=== PATIENT | female | born 1950 | race Caucasian/White ===

== ENCOUNTER 2023-03-27 15:48 | Outpatient (CLI) | payer MEDICARE, OTHER ==
--- NOTE | 2023-03-28 09:07 | XRAY Report ---
PROCEDURE: Lumbar Spine 2 View INDICATIONS: LUMBAR DISC DISORDERS W/RADICULOPATHY TECHNIQUE: 2 views of the lumbar spine were acquired. COMPARISON: None. FINDINGS: Bones: 5 [id number] vertebrae are present. There is mild levoscoliosis. Grade 1 anterolisthesi s of L3 on L4 and L4-L5. No vertebral body compression fractures. No suspicious bony lesions. Disc ectomy and posterior fusion at L4-L5. There is surgical device in the posterior element of L3-L4. Mod erate degenerative disc disease at L5-S1, and mild degenerative disc disease at L1-L2, L2-L3 and L3-L 4. Soft tissues: Overlying bowel gas pattern is normal. No suspicious soft tissue calcifications. IMPRESSION: Degenerative and postsurgical changes in lumbar spine. Reviewed by: Annelise Gomez MD on 03/28/2023 9:05 AM PDT Approved by: Annelise Gomez MD on 03/28/2023 9:05 AM PDT Station ID: [id number]
== END 2023-03-27 15:49 | disposition home or self-care (01) ==
LOC: DI 15:48
PROVIDERS: ATTEND Orthopaedic Surgery
DX: M51.36 Other intervertebral disc degeneration, lumbar region (principal); M51.37 Other intervertebral disc degeneration, lumbosacral region; M43.16 Spondylolisthesis, lumbar region; Z98.1 Arthrodesis status

== ENCOUNTER 2024-06-08 10:47 | Emergency (ER) | payer MEDICARE, OTHER ==
[2024-06-08 11:24] LABS: BASOPHILS % (AUTO) 0.4 %; EOSINOPHILS # (AUTO) 0.1 10^3/uL (0.0-0.7); EOSINOPHILS % (AUTO) 1.1 %; HCT - HEMATOCRIT 44.8 % (37.0-47.0); HGB - HEMOGLOBIN 14.7 g/dL (12.0-16.0); LYMPHOCYTES # (AUTO) 2.3 10^3/uL (1.5-3.5); LYMPHOCYTES % (AUTO) 24.7 %; MEAN CORPUSCULAR HGB CONC 32.8 g/dL (32.0-36.0); MEAN CORPUSCULAR VOLUME 91.4 fL (81.0-99.0); MONOCYTES # (AUTO) 0.6 10^3/uL (0.0-1.0); MONOCYTES % (AUTO) 6.5 %; NEUTROPHILS # (AUTO) 6.2 10^3/uL (1.5-6.6); NEUTROPHILS % (AUTO) 66.9 %; PLT - PLATELET COUNT 238 10^3/uL (130-450); RED CELL DISTRIBUTION WIDTH 12.2 % (12.0-15.0); WHITE BLOOD COUNT 9.2 x10^3/uL (4.8-10.8)
--- NOTE | 2024-06-08 11:27 | ED Physician Documentation ---
History of Present Illness - Stated complaint Stated Complaint: DIZZY, NATARAJAN - Chief complaint Chief Complaint: Neuro - History obtained from History obtained from: Patient - Additonal information Additional information: Patient is a 73-year-old female presenting to the emergency department with diffuse symptoms including headache fatigue difficulty finding words that been going on for months now. The patient denies any nausea vomiting photophobia she notes headache is behind the left side of her head. She denies any vision changes. Patient has past medical history remarkable for diabetes, hypertension she has been compliant with her home medications and is on insulin blood sugars have remained under control recently. She denies any sick contacts no viral URI symptoms. She denies any chest pain or shortness of breath associated with her symptoms.Patient has taken Tylenol at home for symptoms with no significant relief. PD PAST MEDICAL HISTORY - Past Medical History Past Medical History: Yes Cardiovascular: Hypertension, High cholesterol Respiratory: Other Neuro: Other Endocrine/Autoimmune: Type 2 diabetes GI: GERD OPTICAL ASSISTANT: Fibroids : Incontinence HEENT: None Psych: Depression Musculoskeletal: Chronic back pain Derm: None - Past Surgical History Past Surgical History: Yes Ortho: Spine surgery, Other - Present Medications Home Medications: Ambulatory Orders Medication Instructions Recorded Confirmed Atorvastatin Calcium [Lipitor] 80 mg PO DAILY 06/08/24 06/08/24 DULoxetine [Cymbalta] 40 mg PO DAILY 06/08/24 06/08/24 Insulin Aspart [NovoLOG] 5 - 8 unit SUBQ TIDWM 06/08/24 06/08/24 Insulin Glargine [Lantus Solostar] 42 unit SUBQ BID 06/08/24 06/08/24 Losartan Potassium 100 mg PO DAILY 06/08/24 06/08/24 Mecobalamin [B12 Active] 5,000 mcg PO DAILY 06/08/24 06/08/24 Omeprazole 20 mg PO BID 06/08/24 06/08/24 Semaglutide [Ozempic] 0.25 mg SQ Q7D 06/08/24 06/08/24 [place] 800 mg ORAL DAILY PM 06/08/24 06/08/24 cephALEXin [Keflex] 500 mg PO BID #10 cap 06/08/24 oxyBUTYnin chloride [Oxybutynin 15 mg ORAL DAILY 06/08/24 06/08/24 Chloride ER] rOPINIRole [Requip] 4 mg PO QPM 06/08/24 06/08/24 - Allergies Allergies/Adverse Reactions: Allergies Allergy/AdvReac Type Severity Reaction Status Date / Time Sulfa (Sulfonamide Allergy Emesis Verified 06/08/24 10:55 Antibiotics) sulfamethoxazole Allergy Emesis Verified 06/08/24 10:55 [From Bactrim] trimethoprim [From Bactrim] Allergy Emesis Verified 06/08/24 10:55 - Social History Does the pt smoke?: No Smoking Status: Former smoker Does the pt drink ETOH?: No Does the pt have substance abuse?: No - Immunizations Immunizations are current?: Yes PD ED PE NORMAL - General General: Alert and oriented X 3 - HEENT HEENT: Atraumatic - Neck Neck: Supple, no meningeal sign, C-Spine cleared by NEXUS criteria - Cardiac Cardiac: RRR, No murmur, No gallop, No rub - Respiratory Respiratory: No respiratory distress, Clear bilaterally - Abdomen Abdomen: Normal bowel sounds - Female Female : Deferred - Rectal Rectal: Deferred - Derm Derm: Normal color, No rash - Neuro Neuro: Alert and oriented X 3, 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 Eye Opening: Spontaneous Motor: Obeys Commands Verbal: Oriented GCS Score: 15 Results - Vitals Vitals: Oxygen O2 Source Room air - Labs Labs: Microbiology 06/08/24 12:02 Urine Culture - Final Urine,Random Escherichia Coli Laboratory Tests 06/08/24 06/08/24 06/08/24 11:19 11:19 12:02 WBC 9.2 RBC 4.90 Hgb 14.7 Hct 44.8 MCV 91.4 MCH 30.0 MCHC 32.8 RDW 12.2 Plt Count 238 MPV 10.0 Neut # (Auto) 6.2 Lymph # (Auto) 2.3 [place] # (Auto) 0.6 Eos # (Auto) 0.1 Baso # (Auto) 0.0 Absolute Nucleated RBC 0.00 Nucleated RBC % 0.0 Sodium 135 Potassium 4.4 Chloride 99 L Carbon Dioxide 31 Anion Gap 5.0 L BUN 15 Creatinine 0.8 Estimated GFR (MDRD) 70 L Glucose 177 H Calcium 9.8 Magnesium 1.5 L Total Bilirubin 1.4 H AST 20 ALT 21 Alkaline Phosphatase 91 Troponin I High Sens 6.7 Total Protein 7.4 Albumin 4.3 Globulin 3.1 Albumin/Globulin Ratio 1.4 Urine Color YELLOW Urine Clarity HAZY Urine pH 7.0 Ur Specific [place] 1.010 Urine Protein NEGATIVE Urine Glucose (UA) NEGATIVE Urine Ketones NEGATIVE Urine Occult Blood NEGATIVE Urine Nitrite POSITIVE H Urine Bilirubin NEGATIVE Urine Urobilinogen 0.2 (NORMAL) Ur Leukocyte Esterase MODERATE H Urine RBC 0-5 Urine WBC >25 H Ur Squamous Epith Cells FEW Squamous Urine Bacteria Many H Ur Microscopic Review INDICATED Urine Culture Comments INDICATED - Rads (name of study) CT head Relevant Findings:: EMP independent interpretation of test (No acute intracranial pathology) PD Medical Decision Making - ED course Complexity details: reviewed old records, reviewed results, re-evaluated patient ED course: Patient is a 73-year-old female presenting to the emergency department with headache fatigue generalized weakness symptoms have been going on for a few weeks now. Patient took Tylenol at home for symptoms no significant improvement. Patient's headache is behind the right side of her head. She n otes she occasionally will get migraines but this 1 feels different. Vital stable on arrival. Physical exam shows no focal neurodeficits normal cardiac and lung sounds on auscultation strength intact in upper and lower extremities no signs of ataxia on examination. Labs obtained here in the emergency department show no significant anemia or leukocytosis. CMP shows mild elevation in bilirubin but this appears stable to patient's previous labs. Mild hypomagnesemia but no other electrolyte abnormality or significant RIOS. Patient was given fluids Reglan Benadryl Toradol and magnesium replacement in the emergency department for her symptoms. CT scan of head obtained given patient's headaches appear different than her regular migraines. CT scan of head showed no acute intracranial findings. UA obtained here in the emergency department shows significant UTI with greater than 25 white blood cells. Discussed with patient reassuring findings with labs urine analysis does show findings consistent with UTI will start patient on antibiotics here in the emergency department. Discussed with patient to return to the emergency department with any new or worsening symptoms. Patient under stands and is agreeable with this plan. Antibiotics sent to patient's pharmacy on discharge. Departure - Departure Disposition: 01 Home, Self Care Clinical Impression: UTI (urinary tract infection), bacterial, Headache, Frequency of urination, Lightheadedness Condition: Good Instructions: ED Headache Tension, ED Bladder Infec Cystitis Female Ch Prescriptions: cephALEXin [Keflex] 500 mg PO BID #10 cap Comments: Your workup here in the emergency department showed no acute intracranial findings but I have started you on antibiotics for most likely a UTI. You should continue to drink lots of water at home and follow-up with your PCP in the outpatient setting. If your headaches persist or worsen return to the emergency department. Drink lots of fluids when you return home to ensure resolution of symptoms. Forms: PCP List Discharge Date/Time: 06/08/24 14:51
[2024-06-08 11:39] LABS: ALBUMIN 4.3 g/dL (3.2-5.5); ALBUMIN/GLOBULIN RATIO 1.4 (1.0-2.2); BILIRUBIN,TOTAL 1.4 mg/dL (0.2-1.0); CALCIUM 9.8 mg/dL (8.5-10.3); CREATININE 0.8 mg/dL (0.6-1.3); MAGNESIUM 1.5 mg/dL (1.7-2.3); POTASSIUM 4.4 mmol/L (3.5-4.5); TOTAL PROTEIN 7.4 g/dL (6.4-8.9)
[2024-06-08 11:45] LABS: TROPONIN I HIGH SENSITIVITY 6.7 ng/L (2.3-14.8)
[2024-06-08] MEDS: METOCLOPRAMIDE 10 MG/2 ML VIAL IVP STA (11:58)
[2024-06-08] MEDS: KETOROLAC 15 MG/ML VIAL IVP STA (12:00)
[2024-06-08] MEDS: diphenhydrAMINE INJ 50 MG/ML VIAL IVP STA (12:01)
[2024-06-08] MEDS: SODIUM CHLORIDE 0.9% 1,000 ML IV STA (12:02)
[2024-06-08 12:10] LABS: BILIRUBIN,URINE NEGATIVE (NEGATIVE); GLUCOSE, URINE (UA) NEGATIVE (NEGATIVE); KETONES,URINE (UA) NEGATIVE (NEGATIVE); LEUKOCYTE ESTERASE, URINE MODERATE (NEGATIVE); NITRITE,URINE POSITIVE (NEGATIVE); OCCULT BLOOD,URINE NEGATIVE (NEGATIVE); PROTEIN,URINE NEGATIVE (NEGATIVE); UROBILINOGEN,URINE 0.2 (NORMAL) E.U./dL (NORMAL)
[2024-06-08 12:12] LABS: CLARITY,URINE HAZY (CLEAR)
[2024-06-08 12:37] LABS: RBC,URINE 0-5 /HPF (0-5); SQUAMOUS EPITHELIAL CELL,UR FEW Squamous (<= Few); WBC,URINE >25 /HPF (0-5)
[2024-06-08 12:38] LABS: BACTERIA,URINE Many /HPF (None Seen)
[2024-06-08] MEDS: MAGNESIUM SULFATE 2 GRAM 2 GM/50 ML BAG IV ONE (13:28)
--- NOTE | 2024-06-08 13:40 | CT Report ---
PROCEDURE: Head WO INDICATIONS: dizziness, recurrent headaches TECHNIQUE: Noncontrast 4.5 mm thick angled axial sections acquired from the foramen magnum to the vertex. For r adiation dose reduction, the following was used: automated exposure control, adjustment of mA and/or kV according to patient size. COMPARISON: None. FINDINGS: Image quality: Excellent. CSF spaces: Basal cisterns are patent. No extra-axial fluid collections. Ventricles are normal in size and shape. Brain: No midline shift. No intracranial masses or hemorrhage. [place]-white matter interface is norm al. Intracranial carotid calcifications. Age-related volume loss and very mild, age-appropriate smal l vessel ischemic change. Skull and face: Calvarium and visualized facial bones are intact, without suspicious lesions. Sinuses: Visualized sinuses and mastoids are clear. IMPRESSION: No acute intracranial pathology. Reviewed by: Yonas Paredes MD on 06/08/2024 1:38 PM PDT Approved by: Yonas Paredes MD on 06/08/2024 1:38 PM PDT Station ID: [id number]
[2024-06-08 14:57] VITALS: BP 171/83; O2SAT 99
== END 2024-06-08 14:51 | disposition home or self-care (01) ==
LOC: ED 10:47
DX: N39.0 Urinary tract infection, site not specified (principal); B96.89 Other specified bacterial agents as the cause of diseases classified elsewhere; E83.42 Hypomagnesemia; R51.9 Headache, unspecified; R42 Dizziness and giddiness; Z87.891 Personal history of nicotine dependence
CPT/HCPCS: 36415; 70450; 80053; 81001; 83735; 84484; 85025; 87086; 87181; 93005; 96365; 96375; 99284; J1200; J2765; 81003